=== PATIENT | female | born 1940 | race Caucasian/White ===

== ENCOUNTER → 2018-02-05 | Day surgery (SDC) | payer OTHER ==
[~2018-02-05] VITALS: Ht 162.6 cm; Wt 70.8 kg
[~2018-02-05] MED LIST: CO Q-10200 MG PO; FISH OIL 1,2001 EAC4 PO; FLUTICASONE PRO16 GM NASB; GARLIC OIL1000 M1 PO; LEVOTHYROXINE75 MCG PO; PRESERVISION A1 EAC1 PO; VITAMIN B-122500 MCG PO; VYTORIN 10-201 EACH PO
--- NOTE | 2018-02-05 09:07 | MAMMOGRAPHY REPORT ---
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 COMPARISON: Ultrasound guided biopsy and post procedure mammogram dated 12/17/2017. TECHNIQUE NEEDLE LOC: Proper informed consent is obtained from the patient after discussion of the procedure, potential risks and complications, and alternatives including declining the procedure today. Patient was given an opportunity for questions. The patient appeared to understand. The patient consented to the procedure and signed the consent form. GUIDANCE: Digital mammography. APPROACH: Superior. TARGET: Biopsy clip in the 1 to 2:00 position of the right breast at a middle depth. ANESTHESIA: 10 mL Xylocaine 2%. LOCALIZATION MARKER: Kopans 7 cm The skin was prepped and local anesthesia administered. The needle was positioned and position assessed with mammography. The wire was hooked into position. The patient tolerated the procedure well and had no immediate complication. Diagram was marked for the surgeon. The target is a biopsy clip located around the proximal thick thin junction of the wire, 5.5 cm deep to the skin with 13.0 cm of the wire remaining external to the skin. IMPRESSION: Status post right breast needle localization with wire hooked into position. The target is a biopsy clip located around the proximal thick thin junction of the wire, 5.5 cm deep to the skin with 13.0 cm of the wire remaining external to the skin.
--- NOTE | 2018-02-05 10:58 | Operative Report ---
Operative/Inv Procedure Report Surgery Date: 02/05/18 Name of Procedure: Right partial mastectomy for localization and sentinel lymph node biopsy Pre-Operative Diagnosis: Right breast cancer Post-Operative Diagnosis: Same Estimated Blood Loss: scant Surgeon/Dredge Operator: Nuha Mays MD Anesthesia: laryngeal mask airway Specimens: Right lumpectomy, cranial margin, caudal margin, medial margin, lateral margin, deep margin, sentinel lymph node Operative/Procedure Note Note: Patient has a diagnosis of right breast cancers brought to the operating room for lumpectomy and sentinel lymph node biopsy. She is brought to the operating room and given 2 g Ancef. Anesthesia was administered and the right breast was prepped and draped in a sterile fashion using ChloraPrep. Methylene blue diluted with 2 mL of saline was injected in the retroareolar fashion. Local anesthesia of half percent Marcaine was given. The axilla was approached first. A transverse incision was made in the lower axilla the clavipectoral fascia was entered. The axilla was explored and there was a single hot lymph node identified. There were no other hot, blue, or palpable lymph nodes in the axilla. Hemostasis is adequate. Clavipectoral fascia was closed using Vicryl sutures and the skin was closed using a running Biosyn subcuticular stitch. The breast was then approached. Periareolar incision was made after administering local anesthesia. A subcutaneous tunnel was made up into the wire. The wire was brought into the incision and the area of concern was grasped using an Allis clamp. In the dissection was in the subcutaneous plane in the anterior margin. A lumpectomy was performed and the specimen was marked for orientation using margin map. Intraoperative x-ray confirmed the presence of the clip in specimen. Additional margins were taken the cranial, caudal, medial, and lateral positions. Deep tissue was taken to expose the pectoralis muscle. Clips were used to audie the margins a lumpectomy cavity. Hemostasis was adequate. Tissue was mobilized approximated using interrupted Vicryl sutures close lumpectomy defect. Subspace tissue was closed using echo sutures as well as skin was closed using a running Biosyn subcutaneous color stitch. Steri-Strips and sterile dressings were applied and the patient was transferred to the recovery room in satisfactory condition having tolerated procedure well.
--- NOTE | 2018-02-05 18:23 | MAMMOGRAPHY REPORT ---
EXAMINATION: MM NEEDLE LOCALIZATION SPECIMEN FROM THE BREAST, RIGHT CLINICAL INDICATION: Infiltrating ductal carcinoma in the right breast. Specimen radiograph. COMPARISON: Needle localization films from earlier today. TECHNIQUE: Single specimen radiograph was obtained. FINDINGS: The radiograph of the excised surgical specimen shows that the hookwire is delivered intact and the marker clip is identified in the specimen. IMPRESSION: Satisfactory excision of the targeted lesion. These findings were communicated to the surgeon in the OR at the time of specimen radiography.
== END ==
LOC: STS 03:22 → CBW.IIU 07:00 → STS 07:00 → CBW.IIU 07:30 → CBW.US 08:00
DX: C50.111 Malignant neoplasm of central portion of right female breast (principal); Z17.0 Estrogen receptor positive status [ER+]; E03.9 Hypothyroidism, unspecified; I10 Essential (primary) hypertension; K21.9 Gastro-esophageal reflux disease without esophagitis; Z87.891 Personal history of nicotine dependence
CPT/HCPCS: 88305; 88307; J0690; J2001; J2250; J3490; Q9968